=== PATIENT | female | born 1990 | race African-American/Black ===

== ENCOUNTER 2024-10-17 21:17 | Emergency (ER) | payer MEDICAID ==
[2024-10-17] MEDS ORDERED: IBUP-2029 MT (22:08)
== END 2024-10-17 22:19 | disposition home or self-care (01) ==
LOC: ER 21:17
DX: J06.9 Acute upper respiratory infection, unspecified (principal); B34.9 Viral infection, unspecified; Z20.822 Contact with and (suspected) exposure to COVID-19
CPT/HCPCS: 87426; 87804; 99283